=== PATIENT | female | born 1970 | race Caucasian/White ===

== ENCOUNTER → 2016-12-10 | Outpatient (CLI) | payer BC, OTHER ==
[~2016-12-10] MED LIST: ATV5X PO; BUSP15TA70 PO; ESCI1TAB10 PO; MULT-506 PO
--- NOTE | 2016-12-11 05:50 | PAP/PSG TECHNICIAN REPORT ---
[facility] Digital Forensic Examiner Polysomnogram Report Study name: None Report date: 12/11/2016 Study date: 12/10/2016 Referring Physician: Haile Yan M.D. Name: DWIGHT MELCHOR Melissa Interpreting Physician: Gabo Yan M.D. Date of : 1970 Digital Forensic Examiner: KEELEY Keen. Sex: Female Age: 46 StudyType: PSG Weight: 272 lbs Height: 46 years, Height 5' 4.25" Neck Circum: 14.5 inches BMI: 46.32 Medications: Xanax 0.25 mg, Lexapro 20 mg, Buspar 15 mg, Benadryl 25 mg, Multi Vitamins, Pro Air Patient History 46 yr. old female here for a possible split night sleep study. Patient complains of witnessed apneas and snoring. Patients [place] sleepiness scale score is 4/24. Parameters Monitored NPSG: E1-M2, E2-M1, Fp1-M2, Fp2-M1, F3-M2, F4-M2, F4-M1, C3-M2, C4-M2, C4-M1, O1-M2, O2-M2, O2-M1, T3-M2, T4-M1, P3-M2, P4-M1, CHIN1, CHIN2, HR, EKG, Legs, PFLOW, SNOR, FLOW, CFLOW, Tidal Volume, THOR, ABDO, SpO2, PLTH, CPRESS, ETCO2 Wave, ETCO2, pH Sleep Architecture Sleep Stages Time at Lights Off 8:38:40 PM STAGES Time (min.) TST (%) Time at Lights On 5:36:40 AM Wake 125.0 -- Total Recording Time (TRT) 538.50 min. N1 64.5 16 Total Sleep Period (TSP) 523.0 min. N2 259.0 63 Total Sleep Time (TST) 413.0min. N3 10.0 2 Awake Time 125.0 min. REM 79.5 19 Wake after Sleep Onset 110.0 min. Sleep Efficiency (SE) 77 % Sleep Onset Latency (JOSHUA) 15.0 min. Number of Stage 1 Shifts None Awakenings 20 Stage Changes 98 Number of REM periods 8 REM 79.5 19 REM Latency 279.0 min. NREM 333.5 81 Body Position Analysis Supine Right Left Side Prone Vertical Total Sleep Time (min.) 271.9 92.7 79.4 172.02 0.0 11.5 Total Sleep Time (%) 58% 22% 19% 42 0% N/A% Total Sleep Time REM (min.) 70.0 9.5 0.0 None 0.0 0.0 Total Sleep Time NREM (min.) 171.0 83.2 79.4 None 0.0 0.0 Intermittent Wake (min.) 30.9 4.0 78.5 None 0.0 11.5 Total Sleep Period (%) 51% None None None None None Arousals Myoclonus (PLM) * Events Count Index Events Count Index Spontaneous 10 1 Events Awake (PLMW) 77 37.0 Respiratory 0 0.0 Events Asleep w/ Arousal (PLMA) 14 2.0 PLM 14 2 Events Asleep w/o Arousal (PLMS) 82 11.9 Snoring 11 2 Total Asleep 96 13.9 Total 35 5 Total 173 19 Respiratory Analysis * CA OA MA CH H RERA Total Count 2 0 0 0 19 0 21 Index 0.3 0.0 0.0 0 2.8 0 3.1 Mean Duration 14.8 0.0 0.0 0.00 30.7 0.0 29.2 Longest Duration 16.5 0.0 0.0 0.00 0.0 0.0 45.4 Respiratory Event Summary Total Supine ~Supine Right Left Prone REM NREM Apneas Count 2 1 1 1 0 N/A 0 2 Index 0.3 0 0 0.6 0.0 N/A 0 0 Hypopneas (4% Desat) Count 19 19 0 0 0 N/A 5 14 Index 2.8 4.7 0 0.0 0.0 N/A 3.8 2.5 Apneas & All Hypopneas Count 21 20 1 1 0 N/A 5 16 Index 3.1 5 0 1 0 N/A 3.8 2.9 Respiratory Events (Human Resources Executive+All Hyp+RERA) Count 21 20 1 1 0 N/A 5 16 Index 3.1 5 0 0.6 0.0 N/A 3.8 2.9 Respiratory Related Arousal Count 0 20 0 0 0 N/A 0 0 Index 0.0 0 0 0 0 N/A 0 0 Snoring Analysis Supine Right Left Prone REM NREM Total Snore duration 13.3 min Snores count 207 44 304 N/A 60 495 555 Snore mean duration 1.4 Sec Snores index 52 28 230 N/A 45.3 89.1 80.6 TST with snoring (%) 3.2% Desaturation Event Summary: Minimum %SpO2 Event Count Mean/Min/Max Duration(sec.) Desaturation Index % Time In Bed > 90 43 25.4 / 5.5 / 57.5 4.9 99.7 86 - 90 0 N/A 0.0 0.2 81 - 85 0 N/A 0.0 0.1 76 - 80 0 N/A 0.0 0.0 71 - 75 0 N/A 0.0 0.0 66 - 70 0 N/A 0.0 0.0 61 - 65 0 N/A 0.0 0.0 56 - 60 0 N/A 0.0 0.0 51 - 55 0 N/A 0.0 0.0 < 50 0 N/A 0.0 0.0 Total REM NREM Awake <50% 0.0 min. 0.0 min. 0.0 min. 0.0 min. 51 - 60% 0.0 min. 0.0 min. 0.0 min. 0.0 min. 61 - 70% 0.0 min. 0.0 min. 0.0 min. 0.0 min. 71 - 80% 0.0 min. 0.0 min. 0.0 min. 0.0 min. 81 - 90% 1.6 min. 0.7 min. 0.4 min. 0.6 min. 91 - 100% 528.6 min. 78.8 min. 333.1 min. 116.6 min. Average 95 94 95 95 Minimum SpO2 82 90 88 82 Desaturation Event Index 4.8 6.8 4.1 5.3 # Desat. Events below 89% 2 N/A 1 1 Time(%) with Saturation below 89% 0.1 0.0 0.0 0.1 Time(min.) with Saturation below 89% 0.6 0.0 0.1 0.5 Time (mins) REM (mins) NREM (mins) % of TST SpO2 Below 90% 7 5 N2 0.0 SpO2 Below 88% 0 0 0 0 Heart Rate Analysis Min (bpm) Max (bpm) Average (bpm) Awake 58 127 72 NREM 54 85 66 REM 54 81 66 Overall 54 85 66 Supplemental O2 Values Minimum O2 level: None Value Start Time End Time Digital Forensic Examiner Comments MS. Olea slept in the right and supine positions. No cardiac arrhythmia. PLMs noted. No bruxism noted. Snoring was noted and scored as a 3 on a scale of 0 through 5. (0=no snoring, 5=snoring loud enough to be heard through a closed door or down the [address]otts way) MS. Olea awoke to use the restroom once during the night. MS. Olea stated, I had problems falling back to sleep. The final report will be interpreted and signed by a sleep physician. The completed physician report will then be placed in the patient medical record. Therapy (cm H2O) 0 TIB (min.) 538.0 TST (min.) 413.0 Sleep Onset (min.) 15.0 REM Onset From Sleep (min.) 279.0 Sleep Efficiency % 77 Wakefulness (%) 23 Wakefulness (min.) 125.0 NREM 1 (%) 16 NREM 1 (min.) 64.5 NREM 2 (%) 63 NREM 2 (min.) 259.0 NREM 3 (%) 2 NREM 3 (min.) 10.0 REM (%) 19 REM (min.) 79.5 # Arousals 35 Arousal Index 5 # Snore 555 Snore Index 80.6 AHI 3.1 AHI Supine 5 AHI Non-Supine 0 NREM AHI 2.9 REM AHI 3.8 RDI 3.1 # Obstructive Apnea 0 # Central Apnea 2 # Mixed Apnea 0 # Hypopneas 19 RERAs 0 Total Respiratory Events 23 Time Below SpO2 89% (min.) 0.1 Mean NREM SpO2 (%) 95 Mean REM SpO2 (%) 94 Mean Sleep SpO2 (%) 94 Min NREM SpO2 (%) 88 Min REM SpO2 (%) 90 Position Supine (min.) 271.9 Position Non-supine (min.) 172.0 LM Index Sleep 13.9 LM Index NREM 13.1 LM Index REM 17.4 Mean Heart Rate (bpm) 66 Min Heart Rate (bpm) 54
--- NOTE | 2016-12-29 08:30 | POLYSOMNOGRAPH REPORT ---
REFERRING PERSON: Dr. Vineet Yan. RAILROAD YARD WORKER: Aileen Collado. Ms. Olea is a 46-year-old female sent to the sleep lab to rule out sleep disordered breathing. She has a history of snoring and witnessed apneas. [place] Sleepiness Scale score on the evening of this study is 4. BMI is 46.32. Following the technical and digital specifications of the [place] [employer] (AASM) a standard diagnostic polysomnogram was performed monitoring EEG, EOG, EMG (chin and leg deviations), oxygen saturation, body position, digital video, respiratory effort and airflow. The sleep Stage and event scoring was based on the AASM Manual for the Scoring of Sleep and Associated Events 2007 edition. Apneas are defined as a drop in the peak thermal sensor excursion by >90% of baseline for at least 10 seconds. Hypopneas were scored using the 4% oxygen desaturation rule (4A-Medicare) and a decrease in the nasal pressure excursions by >30% of baseline for at least 10 seconds. Respiratory effort-related arousal (RERA's) is defined as a sequence of breaths lasting at least 10 seconds characterized by increasing respiratory effort or flattening of the nasal pressure waveform leading to an arousal from sleep when the sequence of breaths does not meet criteria for an apnea or hypopnea. Apnea Hypopnea index (AHI) is defined as the number of apneas and hypopneas occurring in an hour of sleep. Respiratory disturbance index (RDI) is defined as the number of apneas, hypopneas, and RERA's occurring in an hour of sleep. Ms. Olea' total sleep period time was 523 minutes. Total sleep time was 413 minutes. Sleep efficiency was 77%. Latency to sleep onset was 15 with wake after sleep onset of 110 minutes. Total non-REM sleep time was 333.5 minutes. She spent 16% of that time in N1 sleep, 63% in N2 sleep, and 2% in N3 sleep. REM latency was 279 minutes. Total REM sleep time was 79.5 minutes or 19% of total sleep time. There were 35 cortical arousals from sleep, none of these arousals were due to respiratory events, 14 were due to periodic limb movements, 11 were due to snoring, and 10 were spontaneous. There were 96 periodic limb movements noted on this test. Limb movement index was 13.9. Limb movement with arousal index was 2. There was no obstructive, 2 central, and no mixed apneas on this test. There were 19 hypopnea and no RERA. Apnea-hypopnea index was 3.1. Supine AHI was 5, REM AHI was 3.8. There were 555 snoring events recorded. Total sleep time with snoring was 3.2%. Mean saturation was 95% with desaturations only briefly to 82%. Saturations were less than 89% for only 0.6 minutes of recorded time. There was one period of time that was artifactual where sats were less than 90%. There was no cardiac ectopy noted on this study. Heart rates during sleep ranged from a low of 54 beats per minute to a high of 85 beats per minute. IMPRESSION AND PLAN: A 46-year-old female sent for a split-night sleep study without evidence of sleep disordered breathing, nocturnal hypoxemia, bruxism, parasomnia, or clinically significant periodic limb movements of sleep on this test.
== END | disposition home or self-care (01) ==
LOC: C.NEUR 20:00
PROVIDERS: ATTEND Family Medicine
DX: R06.81 Apnea, not elsewhere classified (principal); R06.83 Snoring; G47.10 Hypersomnia, unspecified

== ENCOUNTER 2019-02-09 18:05 | Inpatient (IN) ==
[2019-02-09] MEDS ORDERED: HYDROmorphone INJ 1 MG/ML SYRINGE IV PRN (20:01)
[2019-02-09] MEDS ORDERED: ONDANSETRON INJ 2 MG/ML 2 ML VIAL IV PRN (20:01)
[2019-02-09] MEDS ORDERED: PROMETHAZINE HCL 25 MG in SODIUM CHLORIDE 0.9% 50 ML IV PRN (20:01)
[2019-02-09] MEDS ORDERED: PROMETHAZINE HCL 12.5 MG in SODIUM CHLORIDE 0.9% 50 ML IV PRN (20:01)
[2019-02-09] MEDS ORDERED: ACETAMINOPHEN 1,000 MG/100 ML VIAL IV ONE (20:01)
--- OUTSIDE RECORDS SUMMARY | 2019-02-09 22:48 | External Medical Summary | Continuity of Care Document ---
:1970 Author Name Kadeem Kurtz Address Unavailable Unavailable , Care Team Providers Name Role Phone Willy Kurtz Unavailable [email or web address] Maria Isabel GALVAN Unavailable Unavailable Problems Active medical history not documented Allergies and Adverse Reactions Allergy history not documented Medications Medications not documented Procedures Procedures not documented Immunizations Immunizations not documented Plan of Treatment Planned Encounters Appointment; Mele Aguilera M.D. Start: 11-Feb-2019 8 :30 Request Planned Observations Planned Goals not documented Results No Known Results Results not documented Encounters Appointment; Mele Aguilera M.D. 11-Feb-2019 8:30 Encounter Diagnosis: Problem not documented
--- NOTE | 2019-02-09 23:05 | History & Physical Report ---
Date of Service February 09, 2019 Assessment & Plan (1) Cholecystitis: Patient will be admitted to the hospital for IV fluids pain medication, medication for nausea and antibiotics Plan is to proceed with laparoscopic cholecystectomy tomorrow. History of Present Illness Primary Care Provider: Bruce Kaufman MD Patient is a 48-year-old female with right upper quadrant abdominal pain who was in the emergency room last evening and was to be seen in our office 2 days did not feel that she would make it that long. She is now being admitted to hospital for laparoscopic cholecystectomy tomorrow. Other history does include a gastric bypass. She had an ultrasound which shows gallbladder distention with sludge and a positive Maldonado sign. Allergies Allergy/AdvReac Type Severity Reaction Status Date / Time No Known Allergies Allergy Verified 02/08/19 23:39 Home Medications Home Medications Medication Instructions Recorded Confirmed Type ondansetron 4 mg PO Q6H PRN #12 tab 02/09/19 Rx oxycodone 5 - 10 mg PO Q6H #15 tab 02/09/19 Rx Past Med/Surg History Social History Preferred Language: Djib[place]ian Feels Safe at Home: Yes Smoking Status: Never smoker Review of Systems All systems reviewed & are unremarkable except as noted in HPI & below Physical Exam Vital Signs (Past 24 Hours): Last Vital Signs Temp 36.7 C 02/09/19 22:55 Resp 18 02/09/19 22:55 BP 137/85 02/09/19 22:55 Pulse Ox 100 02/09/19 22:55 Currently she is awake and alert vital signs are stable he is in her bed in the hospital she has mild abdominal pain at the present time. Her head is atraumatic sclera are anicteric neck is supple lungs show no evidence of respiratory distress heart regular rhythm. Abdomen is soft he does have some mild tenderness in the upper abdomen. Remedies are warm and well-perfused. Results & Data Diagnostic Findings I have reviewed her ultrasound
[2019-02-09 23:24] LABS: Basophils # (auto) 0.01 K/uL (0-0.2); Basophils % (auto) 0.2 %; Eosinophils # (auto) 0.08 K/uL (0-0.5); Eosinophils % (auto) 1.4 %; Hemoglobin 12.4 g/dL (12.0-16.0); Immature Granulocytes # (auto) 0.01 K/uL (0.00-0.02); Immature Granulocytes % (auto) 0.2 %; Lymphocytes % (auto) 33.4 %; Mean Corpuscular Hgb Conc 32.6 g/dL (32-36); Mean Platelet Volume 11.6 fL (7.4-10.4); Monocytes # (auto) 0.31 K/uL (0.11-0.59); Monocytes % (auto) 5.4 %; Neutrophils # (auto) 3.38 K/uL (1.4-6.5); Neutrophils % (auto) 59.4 %; Platelet Count 234 K/uL (130-400); RDW Coefficient of Variation 16.6 % (11.5-14.5); RDW Standard Deviation 51.8 fL (36.4-46.3); Red Blood Count 4.47 M/uL (4.2-5.4); White Blood Count 5.69 K/uL (4.8-10.8)
[2019-02-09 23:45] LABS: Albumin Level 3.9 gm/dl (3.4-5.0); BUN Creatinine Ratio 12.4 (10-20); Bilirubin Direct 0.1 mg/dl (0-0.2); Calcium 9.4 mg/dl (8.5-10.1); Creatinine Clr Calc Pharmacy 83.9 ml/min; Est GFR (African American) 102.5; Est GFR (Non-African American) 88.4; Potassium 3.6 mmol/L (3.5-5.1)
[2019-02-09 23:48] LABS: Bilirubin,Total 0.3 mg/dl (0.2-1); Globulin 3.8 gm/dl (2.5-4.0); Phosphorus 2.9 mg/dl (2.5-4.9); Total Protein 7.7 gm/dl (6.4-8.2)
[2019-02-10] MEDS: SODIUM CHLORIDE 0.9% 1000ML 1,000 ML IV SCH ×3 (00:17→21:26)
[2019-02-10] MEDS: HYDROmorphone INJ 0.5 MG/0.5 ML SYR IV PRN ×2 (00:30→03:18)
[2019-02-10] MEDS ORDERED: ACETAMINOPHEN 1,000 MG/100 ML VIAL IV PRN (06:11)
[2019-02-10] MEDS ORDERED: DiphenhydrAMINE HCL 50 MG/ML VIAL IV PRN ×3 (06:11→07:59)
--- NOTE | 2019-02-10 06:14 | History & Physical Bridge Note ---
Date of Service February 10, 2019 History & Physical Bridge Note I have examined the patient, reviewed the History & Physical and in the interval since the performance of the History & Physical I have noted the following changes of clinical significance: no changes noted
--- NOTE | 2019-02-10 06:18 | Anesthesiology Consultation ---
Date of Service February 10, 2019 Assessment & Plan (1) Encounter for pre-operative examination: Chart Review Chart Review: Acceptable Risk for Surgery and Patient NOT seen in Pre Admission Testing Consults Requested none History Surgery Operation Date: 02/10/19 08:15 Proposed Procedures p Laparoscopic Cholecystectomy - Gavino Ceballos MD, FACS Height/Weight Height: 5 ft 4 in Weight: 69.2 kg Allergies Allergy/AdvReac Type Severity Reaction Status Date / Time No Known Allergies Allergy Verified 02/08/19 23:39 Medications Home Medications Medication Instructions Recorded Confirmed Last Taken ondansetron 4 mg PO Q6H PRN #12 tab 02/09/19 Unknown oxycodone 5 - 10 mg PO Q6H #15 tab 02/09/19 Unknown Active Medications Generic Name Dose Route Start Last Admin Trade Name Freq PRN Reason Stop Dose Admin Hydromorphone HCl 0.5 mg 02/09/19 20:01 02/10/19 03:18 Dilaudid IV 02/23/19 20:00 0.5 mg Q3HWA PRN Administration Pain Cefoxitin Sodium 1,000 mg/ 60 mls @ 100 mls/hr 02/10/19 00:00 02/10/19 06:25 Dextrose IV 02/20/19 00:00 Infused Q6H [facility]A Infusion Sodium Chloride 1,000 mls @ 80 mls/hr 02/09/19 20:15 02/10/19 05:09 Nss 1000ml IV 03/11/19 20:14 80 mls/hr .[id number] [facility] Infusion Ondansetron HCl 4 mg 02/09/19 20:01 02/10/19 00:30 Zofran IV 03/11/19 20:00 4 mg [id number] PRN Administration Nausea NPO Date Last Intake of Fluids: 02/09/19 Time Last Intake of Fluids: 23:59 Date Last Intake of Solids: 02/10/19 Time Last Intake of Solids: 23:59 Past Medical History Medical History Hypoglycemia Hypotension Seizure 20 yr ago Syncopal episodes vasovagal. 20 years ago Exercise / Class Metabolic Activity II 4-5 Yardwork/Stairs/Walk up hill Past Surgical History Surgical History Gastric bypass status for obesity 2016 H/O tubal ligation Hx of laparoscopic gastric banding Past Anesthesia History No Hx of Anesthesia Complications and No Family Hx of Anesthesia Complications History of PONV No Hx of PONV and No Hx of Motion Sickness Social History Smoking Status: Never smoker Hx Alcohol Use: Yes alcohol intake frequency: a few times a week Hx Substance Use: No Physical Exam Vital Signs Last Vital Signs Temp 36.7 C 02/10/19 07:07 Pulse 60 02/10/19 07:07 Resp 16 02/10/19 07:07 BP 115/71 02/10/19 07:07 Pulse Ox 99 02/10/19 07:07 Testing Electrocardiogram Date: 02/08/19 Findings: + SB @ (56 bpm) Sinus bradycardia Otherwise normal ECG When compared with ECG of 10-AUG-2013 22:03, No significant change was found Confirmed by Douglas Maciel ([id number]) on 02/09/2019 4:04:13 PM Laboratory Results 02/09/19 23:10 02/09/19 23:10
[2019-02-10] MEDS ORDERED: PROPOFOL IV EMULSION 10 MG/ML 20 ML VIAL IV ONE (07:53)
[2019-02-10] MEDS ORDERED: ROCURONIUM BROMIDE 10 MG/ML 5 ML VIAL ONE (07:53)
[2019-02-10] MEDS ORDERED: LIDOCAINE HCL 2% 2 ML VIAL/AMP(20MG/ML) INFIL ONE (07:53)
[2019-02-10] MEDS ORDERED: fentaNYL citrate 100 MCG/2 ML VIAL ONE (07:53)
[2019-02-10] MEDS ORDERED: ONDANSETRON INJ 2 MG/ML 2 ML VIAL ONE (07:53)
[2019-02-10] MEDS ORDERED: GLYCOPYRROLATE 0.2 MG/ML VIAL ONE ×2 (07:53→09:06)
[2019-02-10] MEDS ORDERED: MIDAZOLAM HCL 1 MG/ML 2ML VIAL ONE (07:53)
[2019-02-10] MEDS ORDERED: NEOSTIGMINE METHYLSULFATE 5 MG/5 ML SYR ONE (07:53)
[2019-02-10] MEDS ORDERED: DEXAMETHASONE SOD INJ 4 MG/ML VIAL ONE (07:53)
[2019-02-10] MEDS ORDERED: ePHEDrine sulfate 50 MG/ML AMP IV PRN (07:59)
[2019-02-10] MEDS ORDERED: ATROPINE SULFATE 0.1 MG/ML 10ML SYR IV PRN (07:59)
[2019-02-10] MEDS ORDERED: fentaNYL citrate 100 MCG/2 ML VIAL IV PRN (07:59)
[2019-02-10] MEDS ORDERED: HYDROmorphone INJ 1 MG/ML SYRINGE IV PRN (07:59)
[2019-02-10] MEDS ORDERED: BUPIVACAINE 0.5 % 5 MG/1 ML MPF 30ML VIAL ONE (07:59)
[2019-02-10] MEDS ORDERED: CONRAY 60% 50 ML VIAL ONE (07:59)
[2019-02-10] MEDS ORDERED: ACETAMINOPHEN 1000 MG/100 ML IV IV ONE (09:03)
--- NOTE | 2019-02-10 09:11 | Operative Report ---
Post Operative Report Pre & Post Diagnosis Operation Date: 02/10/19 08:15 Pre-Op Diagnosis: ACUTE CHOLECYSTITIS Post-Op Diagnosis: ACUTE CHOLECYSTITIS and chronic cholecystitis Procedure Operation Date: 02/10/19 08:15 Actual Procedures p Laparoscopic Cholecystectomy - Gavino Ceballos MD, FACS Surgeon Gavino Ceballos MD, FACS General Intern nurses Estimated Blood Loss 10 Findings Consistent with Post-Op Diagnosis Specimens gallbladder Description of Procedure see dictation I attest to the content of the Intraoperative Record and any orders documented therein. Any exceptions are noted below.
--- NOTE | 2019-02-10 09:32 | Operative Report ---
DATE OF OPERATION: 02/10/2019 NAME OF OPERATION: Laparoscopic cholecystectomy. PREOPERATIVE DIAGNOSIS: Acute cholecystitis. POSTOPERATIVE DIAGNOSIS: Acute cholecystitis with chronic cholecystitis. STAFF SURGEON: Gavino Ceballos MD ANESTHESIA: General. DESCRIPTION OF PROCEDURE: The patient was brought in the operating room and placed on the operating table in supine position. Her abdomen was prepped and draped in usual fashion. Pneumatic stockings and orogastric tube were placed. The patient had previous gastric bypass surgery. Incision was made just below the umbilicus using 0.5% plain Marcaine to anesthetize skin and subcutaneous tissue. This incision was made with dissection carried down to the fascia. Veress needle passed and then pneumoperitoneum produced. At this point, the 11 mm port was placed at this level and then a camera passed. Under visualization, three 5 mm ports were placed, 1 cephalad and 2 laterally. The gallbladder was identified, grasped and retracted. It was very distended. There was scar tissue in the jakob hepatis and in the posterior wall of the gallbladder after dissection, the gallbladder was aspirated of bile initially which was sludge-like. The cystic duct and cystic artery were identified, clipped and transected and the gallbladder dissected away from the liver bed in the usual fashion. After appropriate irrigation and hemostasis, the gallbladder was placed in an Endobag and then removed from the umbilical site. All ports were then removed. The fascia at the umbilicus closed using interrupted 0 Vicryl suture. Skin reapproximated using subcuticular 4-0 Monocryl. Dermabond was used at the umbilical site and then Steri-Strips at the other sites. The patient was transferred to the recovery room in stable condition. I attest to the content of the Intraoperative Record and any orders documented therein. Any exception s are noted below.
[2019-02-10] MEDS ORDERED: HYDROCODONE/ACETAMOPHEN 5/325MG TAB PO PRN (10:35)
--- NOTE | 2019-02-10 11:47 | Anesthesiology Progress Note ---
Date of Service February 10, 2019 Anesthesia Post Procedure Vital Signs Vital Signs: Temp Pulse Resp BP Pulse Ox 02/10/19 11:10 36.6 C 61 15 111/75 99 02/10/19 10:36 56 L 15 111/71 98 02/10/19 09:55 36.8 C 54 L 16 121/73 99 02/10/19 09:45 36.8 C 53 L 16 124/77 100 02/10/19 09:35 53 L 14 127/79 100 02/10/19 09:25 85 13 131/79 100 02/10/19 09:19 37.3 C 62 16 118/77 100 02/10/19 08:02 36.8 C 60 18 106/60 100 02/10/19 07:52 36.8 C 60 16 106/60 100 02/10/19 07:07 36.7 C 60 16 115/71 99 02/09/19 23:24 36.5 C 61 16 128/82 100 02/09/19 22:55 36.7 C 18 137/85 100 Pain Intensity Right Medial Abdomen: Pain Intensity: 0 Transfer of Care Handoff Completed per policy Notes Mental Status: alert / awake / arousable and participated in evaluation Patient Amnestic to Procedure: Yes Nausea / Vomiting: adequately controlled Pain: adequately controlled Airway Patency, RR, SpO2: stable & adequate BP & HR: stable & adequate Hydration State: stable & adequate Anesthetic Complications: no major complications apparent and Pt Satisfied with anesthetic care
[2019-02-10] MEDS: DOCUSATE SODIUM/SENNA 50/8.6MG TAB PO SCH (21:04)
[2019-02-10] MEDS: HYDROCODONE/ACETAMOPHEN 5/325MG TAB PO PRN (21:24)
[2019-02-11] MEDS: HYDROCODONE/ACETAMOPHEN 5/325MG TAB PO PRN ×2 (03:45→09:01)
[2019-02-11 05:50] LABS: Basophils # (auto) 0.01 K/uL (0-0.2); Basophils % (auto) 0.2 %; Eosinophils # (auto) 0.09 K/uL (0-0.5); Eosinophils % (auto) 1.4 %; Hematocrit (blood only) 32.9 % (37-47); Hemoglobin 10.7 g/dL (12.0-16.0); Immature Granulocytes # (auto) 0.01 K/uL (0.00-0.02); Immature Granulocytes % (auto) 0.2 %; Lymphocytes # (auto) 2.59 K/uL (1.2-3.4); Lymphocytes % (auto) 40.1 %; Mean Corpuscular Hgb Conc 32.5 g/dL (32-36); Mean Corpuscular Volume 84.4 fL (80-100); Mean Platelet Volume 11.3 fL (7.4-10.4); Monocytes # (auto) 0.53 K/uL (0.11-0.59); Monocytes % (auto) 8.2 %; Neutrophils # (auto) 3.23 K/uL (1.4-6.5); Neutrophils % (auto) 49.9 %; Platelet Count 186 K/uL (130-400); RDW Coefficient of Variation 16.5 % (11.5-14.5); RDW Standard Deviation 51.2 fL (36.4-46.3); White Blood Count 6.46 K/uL (4.8-10.8)
[2019-02-11 06:15] LABS: Alanine Aminotransferase 51 U/L (12-78); Albumin Level 2.7 gm/dl (3.4-5.0); Aspartate Aminotransferase 31 U/L (15-37); BUN Creatinine Ratio 12.9 (10-20); Bilirubin Direct < 0.1 mg/dl (0-0.2); Blood Urea Nitrogen 11 mg/dl (7-18); Calcium 8.2 mg/dl (8.5-10.1); Carbon Dioxide 29 mmol/L (21-32); Chloride 110 mmol/L (98-107); Est GFR (African American) 95.2; Est GFR (Non-African American) 82.2; Glucose 99 mg/dl (70-99); Potassium 3.7 mmol/L (3.5-5.1); Sodium 140 mmol/L (136-145)
[2019-02-11 06:28] LABS: Albumin Globulin Ratio 0.9 (0.9-2); Alkaline Phosphatase 50 U/L (45-117); Bilirubin,Total 0.2 mg/dl (0.2-1); Phosphorus 2.9 mg/dl (2.5-4.9); Total Protein 5.7 gm/dl (6.4-8.2)
[2019-02-11] MEDS: DOCUSATE SODIUM/SENNA 50/8.6MG TAB PO SCH (08:58)
--- NOTE | 2019-02-14 19:21 | Discharge Summary ---
PRIMARY DISCHARGE DIAGNOSIS: Acute cholecystitis. PROCEDURE PERFORMED: Laparoscopic cholecystectomy. HOSPITAL COURSE: The patient is a 48-year-old female who presented to the Emergency Department for the second time in 2 days with complaint of right upper quadrant pain. Ultrasound showed distended gallbladder with sludge and trace pericholecystic fluid. She was admitted to the surgical service overnight and taken to the operating room the next morning for laparoscopic cholecystectomy. The procedure was well tolerated. She was returned to the surgical floor for overnight observation. On postoperative day 1, she was tolerating diet and oral analgesics. Her abdomen was soft. Incisions were clean and dry. She was stable for discharge. DISCHARGE INSTRUCTIONS: Discharge home. Follow up with Dr. Ceballos in 2 weeks. DISCHARGE MEDICATIONS: [place] 1-2 tablets every 6 hours as needed, can resume Zofran 4 mg every 6 hours as needed.
== END 2019-02-11 12:50 | disposition home or self-care (01) | DRG 419 ==
LOC: 3N 22:47